=== PATIENT | female | born 1940 | race Caucasian/White ===

== ENCOUNTER → 2017-01-12 02:00 | Outpatient (REF) | payer MEDICARE, SELFPAY ==
[2017-01-12 09:59] LABS: Color, Urine Yellow (Yellow); Glucose, Dipstick 100 mg/dl (Normal); Ketone-Dipstick Negative (Negative); Leukocyte Esterase-Dipstick 25 /ul (Negative); Nitrite-Dipstick Negative (Negative); Occult Blood-Urine 25 /ul (Negative); Protein-Dipstick 100 mg/dl (Negative); Urine Bilirubin Dipstick Negative (Negative); Urine Clarity Sl. Cloudy (Clear); Urine Urobilinogen Normal (Normal)
== END | disposition home or self-care (01) ==
LOC: OLS.ACW300 02:00
PROVIDERS: Visit Provider Internal Medicine
DX: K92.2 Gastrointestinal hemorrhage, unspecified (principal); I50.9 Heart failure, unspecified; E11.69 Type 2 diabetes mellitus with other specified complication; I11.0 Hypertensive heart disease with heart failure; I47.9 Paroxysmal tachycardia, unspecified
CPT/HCPCS: 81002; 87077; 87086; 87088; 87186

== ENCOUNTER → 2017-01-26 01:30 | Outpatient (REF) | payer MEDICARE, SELFPAY ==
[2017-01-26 08:38] LABS: International Normalized Ratio 3.2; Prothrombin Time (Protime)PT. 31.2 SECONDS (11.7-14.9)
== END | disposition home or self-care (01) ==
LOC: OLS.ACW300 01:30
PROVIDERS: Visit Provider Internal Medicine
DX: E11.69 Type 2 diabetes mellitus with other specified complication (principal); K92.2 Gastrointestinal hemorrhage, unspecified; I50.9 Heart failure, unspecified; I10 Essential (primary) hypertension; I47.9 Paroxysmal tachycardia, unspecified; N39.0 Urinary tract infection, site not specified
CPT/HCPCS: 36415; 85610; 87077; 87086; 87088; 87186

== ENCOUNTER → 2017-06-03 07:51 | Outpatient (REF) | payer MEDICARE, SELFPAY ==
[2017-06-03 09:47] LABS: Hematocrit 27.4 % (37-47); Hemoglobin 8.7 g/dl (12.0-15.0); Mean Corp Hgb Conc 31.8 g/gl (32-36); Mean Corpuscular Hgb 31.6 pg (27.0-32.0); Mean Corpuscular Volume 99.6 fL (81-99); Mean Platelet Vol. 9.4 fl (6.2-12.0); Platelet Count 282 K/mm3 (150-450); RBC Distribution Width CV 17.5 % (11.6-14.6); Red Blood Count 2.75 M/mm3 (4.2-5.4); White Blood Count 9.1 K/mm3 (4.4-11.0)
[2017-06-03 09:48] LABS: Erythrocyte Sedimentation Rate 28 mm/hr (0-30); Scan Indicated on CBC? Y/N NO
[2017-06-03 09:55] LABS: AST(SGOT) 23 U/L (15-37); Alanine Aminotransfer ALT/SGPT 10 U/L (12-78); Albumin, Serum 1.7 g/dL (3.4-5.0); Alkaline Phosphatase 89 U/L (45-117); Bilirubin, Direct 0.22 mg/dL (0.00-0.30); Globulin 3.2 g/dL (2.2-4.2); Protein, Total 4.9 g/dL (6.4-8.2)
== END ==
LOC: OLS.ACW200 07:51
PROVIDERS: Visit Provider Internal Medicine
DX: G93.41 Metabolic encephalopathy (principal); R41.841 Cognitive communication deficit; R48.9 Unspecified symbolic dysfunctions; R27.9 Unspecified lack of coordination; M62.81 Muscle weakness (generalized); I50.9 Heart failure, unspecified
CPT/HCPCS: 36415; 80076; 85027; 85652; 86140

== ENCOUNTER → 2017-06-04 05:00 | Outpatient (REF) | payer MEDICARE, SELFPAY ==
[2017-06-04 08:34] LABS: Hematocrit 28.7 % (37-47); Hemoglobin 9.2 g/dl (12.0-15.0); Mean Corp Hgb Conc 32.1 g/gl (32-36); Mean Corpuscular Hgb 31.7 pg (27.0-32.0); Mean Platelet Vol. 9.2 fl (6.2-12.0); Platelet Count 309 K/mm3 (150-450); RBC Distribution Width CV 17.2 % (11.6-14.6); RBC Distribution Width SD 58.6 fl (35.1-43.9)
[2017-06-04 08:42] LABS: Scan Indicated on CBC? Y/N NO
[2017-06-04 09:05] LABS: Anion Gap 9 (5-15); BUN 32 mg/dL (7-18); BUN/Creat Ratio 8.1 RATIO (10-20); Calcium,Total 8.2 mg/dL (8.5-10.1); Chloride 98 mmol/L (98-107); Creatinine, Serum 3.93 mg/dL (0.55-1.02); EST Glomerular Filtration Rate 12 mL/min (>60); Est Glom Filt Rate - Afr Amer 14 mL/min (>60); Glucose 146 mg/dL (70-110); Potassium 3.4 mmol/L (3.5-5.1); Sodium Level 139 mmol/L (136-145)
== END ==
LOC: OLS.ACW200 05:00
PROVIDERS: Visit Provider Internal Medicine
DX: L89.314 Pressure ulcer of right buttock, stage 4 (principal); N18.6 End stage renal disease; R41.841 Cognitive communication deficit; R48.9 Unspecified symbolic dysfunctions; R27.9 Unspecified lack of coordination; M62.81 Muscle weakness (generalized)
CPT/HCPCS: 36415; 80048; 85027

== ENCOUNTER → 2017-06-10 05:00 | Outpatient (REF) | payer MEDICARE, SELFPAY ==
[2017-06-10 08:02] LABS: Hematocrit 28.8 % (37-47); Hemoglobin 9.2 g/dl (12.0-15.0); Mean Corp Hgb Conc 31.9 g/gl (32-36); Mean Corpuscular Hgb 32.3 pg (27.0-32.0); Mean Corpuscular Volume 101.1 fL (81-99); Mean Platelet Vol. 9.4 fl (6.2-12.0); Platelet Count 346 K/mm3 (150-450); RBC Distribution Width CV 18.5 % (11.6-14.6); RBC Distribution Width SD 63.1 fl (35.1-43.9); Red Blood Count 2.85 M/mm3 (4.2-5.4); White Blood Count 9.5 K/mm3 (4.4-11.0)
[2017-06-10 08:34] LABS: AST(SGOT) 17 U/L (15-37); Alanine Aminotransfer ALT/SGPT 11 U/L (12-78); Albumin, Serum 1.8 g/dL (3.4-5.0); Alkaline Phosphatase 91 U/L (45-117); Bilirubin, Direct 0.23 mg/dL (0.00-0.30); Protein, Total 4.8 g/dL (6.4-8.2)
[2017-06-10 08:36] LABS: Scan Indicated on CBC? Y/N NO
== END ==
LOC: OLS.ACW200 05:00
PROVIDERS: Visit Provider Internal Medicine
DX: G93.41 Metabolic encephalopathy (principal); R41.841 Cognitive communication deficit; R48.9 Unspecified symbolic dysfunctions; R27.9 Unspecified lack of coordination; M62.81 Muscle weakness (generalized); I50.9 Heart failure, unspecified
CPT/HCPCS: 36415; 80076; 85027

== ENCOUNTER → 2017-06-15 01:00 | Outpatient (REF) | payer MEDICARE, SELFPAY ==
[2017-06-15 13:42] LABS: Color, Urine Brown (Yellow); Glucose, Dipstick Normal (Normal); Ketone-Dipstick Negative (Negative); Leukocyte Esterase-Dipstick 500 /ul (Negative); Nitrite-Dipstick Negative (Negative); Occult Blood-Urine 250 /ul (Negative); Protein-Dipstick 100 mg/dl (Negative); Specific Gravity, Urine 1.015 (1.002-1.030); Urine Clarity Turbid (Clear); Urine Urobilinogen Normal (Normal)
[2017-06-15 13:45] LABS: Urine Bilirubin Dipstick 1 mg/dL (Negative)
== END ==
LOC: OLS.ACW200 01:00
PROVIDERS: Visit Provider Internal Medicine
DX: L89.314 Pressure ulcer of right buttock, stage 4 (principal); N18.6 End stage renal disease; R41.841 Cognitive communication deficit; R48.9 Unspecified symbolic dysfunctions; R27.9 Unspecified lack of coordination; M62.81 Muscle weakness (generalized)
CPT/HCPCS: 81002; 87086; 87088

== ENCOUNTER → 2017-06-17 05:00 | Outpatient (REF) | payer MEDICARE, SELFPAY ==
[2017-06-17 08:17] LABS: Hematocrit 29.7 % (37-47); Mean Corp Hgb Conc 30.3 g/gl (32-36); Mean Corpuscular Hgb 30.2 pg (27.0-32.0); Mean Corpuscular Volume 99.7 fL (81-99); Mean Platelet Vol. 9.9 fl (6.2-12.0); Platelet Count 311 K/mm3 (150-450); RBC Distribution Width CV 16.7 % (11.6-14.6); Red Blood Count 2.98 M/mm3 (4.2-5.4); White Blood Count 9.1 K/mm3 (4.4-11.0)
[2017-06-17 08:19] LABS: Scan Indicated on CBC? Y/N NO
[2017-06-17 08:27] LABS: AST(SGOT) 13 U/L (15-37); Alanine Aminotransfer ALT/SGPT 11 U/L (12-78); Albumin, Serum 1.7 g/dL (3.4-5.0); Alkaline Phosphatase 87 U/L (45-117); Bilirubin, Direct 0.31 mg/dL (0.00-0.30); Globulin 2.8 g/dL (2.2-4.2); Protein, Total 4.5 g/dL (6.4-8.2)
== END ==
LOC: OLS.ACW200 05:00
PROVIDERS: Visit Provider Internal Medicine
DX: G93.41 Metabolic encephalopathy (principal); R41.841 Cognitive communication deficit; R48.9 Unspecified symbolic dysfunctions; R27.9 Unspecified lack of coordination; M62.81 Muscle weakness (generalized); I50.9 Heart failure, unspecified
CPT/HCPCS: 36415; 80076; 85027

== ENCOUNTER → 2017-06-24 05:00 | Outpatient (REF) | payer MEDICARE, SELFPAY ==
[2017-06-24 08:46] LABS: AST(SGOT) 14 U/L (15-37); Alanine Aminotransfer ALT/SGPT 10 U/L (12-78); Albumin, Serum 1.7 g/dL (3.4-5.0); Alkaline Phosphatase 86 U/L (45-117); Bilirubin, Direct 0.22 mg/dL (0.00-0.30); Globulin 2.9 g/dL (2.2-4.2); Protein, Total 4.6 g/dL (6.4-8.2)
== END ==
LOC: OLS.ACW200 05:00
PROVIDERS: Visit Provider Family Medicine
DX: G93.41 Metabolic encephalopathy (principal); R41.841 Cognitive communication deficit; R48.9 Unspecified symbolic dysfunctions; R27.9 Unspecified lack of coordination; M62.81 Muscle weakness (generalized); I50.9 Heart failure, unspecified
CPT/HCPCS: 36415; 80076

== ENCOUNTER → 2017-06-25 05:00 | Outpatient (REF) | payer MEDICARE, SELFPAY ==
[2017-06-25 08:49] LABS: Hemoglobin 9.7 g/dl (12.0-15.0); Mean Corp Hgb Conc 29.4 g/gl (32-36); Mean Corpuscular Hgb 29.5 pg (27.0-32.0); Mean Corpuscular Volume 100.3 fL (81-99); Mean Platelet Vol. 9.6 fl (6.2-12.0); Platelet Count 402 K/mm3 (150-450); RBC Distribution Width CV 17.3 % (11.6-14.6); RBC Distribution Width SD 60.5 fl (35.1-43.9); Red Blood Count 3.29 M/mm3 (4.2-5.4); White Blood Count 13.6 K/mm3 (4.4-11.0)
[2017-06-25 08:50] LABS: Scan Indicated on CBC? Y/N NO
== END ==
LOC: OLS.ACW200 05:00
PROVIDERS: Visit Provider Internal Medicine
DX: G93.41 Metabolic encephalopathy (principal); R41.841 Cognitive communication deficit; R48.9 Unspecified symbolic dysfunctions; R27.9 Unspecified lack of coordination; M62.81 Muscle weakness (generalized); I50.9 Heart failure, unspecified
CPT/HCPCS: 85027

== ENCOUNTER → 2017-06-26 07:30 | Outpatient (REF) | payer MEDICARE, SELFPAY ==
[2017-06-26 12:33] LABS: Color, Urine Yellow (Yellow); Glucose, Dipstick Normal (Normal); Ketone-Dipstick 5 mg/dl (Negative); Leukocyte Esterase-Dipstick 500 /ul (Negative); Nitrite-Dipstick Negative (Negative); Occult Blood-Urine 250 /ul (Negative); Protein-Dipstick 100 mg/dl (Negative); Urine Clarity Turbid (Clear); Urine Urobilinogen 1 mg/dl (Normal)
[2017-06-26 12:34] LABS: Urine Bilirubin Dipstick 1 mg/dL (Negative)
== END ==
LOC: OLS.ACW200 07:30
PROVIDERS: Visit Provider Internal Medicine
DX: L89.314 Pressure ulcer of right buttock, stage 4 (principal); N18.6 End stage renal disease; R41.841 Cognitive communication deficit; R48.9 Unspecified symbolic dysfunctions; R27.9 Unspecified lack of coordination; M62.81 Muscle weakness (generalized)
CPT/HCPCS: 81002; 87077; 87086; 87088; 87186

== ENCOUNTER → 2017-06-27 05:00 | Outpatient (REF) | payer MEDICARE, SELFPAY ==
[2017-06-27 08:40] LABS: Hematocrit 32.2 % (37-47); Hemoglobin 9.6 g/dl (12.0-15.0); Mean Corp Hgb Conc 29.8 g/gl (32-36); Mean Corpuscular Hgb 29.9 pg (27.0-32.0); Mean Corpuscular Volume 100.3 fL (81-99); Mean Platelet Vol. 9.3 fl (6.2-12.0); Platelet Count 383 K/mm3 (150-450); RBC Distribution Width CV 16.9 % (11.6-14.6); RBC Distribution Width SD 58.7 fl (35.1-43.9); Red Blood Count 3.21 M/mm3 (4.2-5.4); White Blood Count 13.2 K/mm3 (4.4-11.0)
[2017-06-27 08:42] LABS: Scan Indicated on CBC? Y/N NO
[2017-06-27 08:43] LABS: Anion Gap 10 (5-15); BUN 30 mg/dL (7-18); BUN/Creat Ratio 9.2 RATIO (10-20); Calcium,Total 7.8 mg/dL (8.5-10.1); Chloride 99 mmol/L (98-107); Creatinine, Serum 3.27 mg/dL (0.55-1.02); EST Glomerular Filtration Rate 15 mL/min (>60); Est Glom Filt Rate - Afr Amer 18 mL/min (>60); Glucose 139 mg/dL (70-110); Potassium 3.4 mmol/L (3.5-5.1); Sodium Level 140 mmol/L (136-145)
== END ==
LOC: OLS.ACW200 05:00
PROVIDERS: Visit Provider Internal Medicine
DX: L89.314 Pressure ulcer of right buttock, stage 4 (principal); N18.6 End stage renal disease; R41.841 Cognitive communication deficit; R48.9 Unspecified symbolic dysfunctions; M62.81 Muscle weakness (generalized); R27.9 Unspecified lack of coordination
CPT/HCPCS: 36415; 80048; 85027